=== PATIENT | male | born 1960 | race Hispanic/Latino ===

== ENCOUNTER 2022-01-15 16:17 | Emergency (ER) | payer OTHER ==
[~2022-01-15] VITALS: Ht 182.9 cm; Wt 136.1 kg
[2022-01-15] MEDS ORDERED: ACETAMINOPHEN 325 MG TAB PO ONE (17:00)
== END 2022-01-15 19:45 | disposition home or self-care (01) ==
LOC: ER 16:53
DX: S09.8XXA Other specified injuries of head, initial encounter (principal); S76.012A Strain of muscle, fascia and tendon of left hip, initial encounter; S60.221A Contusion of right hand, initial encounter; W01.10XA Fall on same level from slipping, tripping and stumbling with subsequent striking against unspecified object, initial encounter; Z88.0 Allergy status to penicillin
CPT/HCPCS: 70450; 72125; 99283